=== PATIENT | female | born 1950 | race Caucasian/White ===

== ENCOUNTER → 2017-08-23 | Outpatient (CLI) | payer BC | LOC: FIMAGING 13:21 | PROVIDERS: ATTEND Internal Medicine | DX: Z12.31 Encounter for screening mammogram for malignant neoplasm of breast (principal) | CPT/HCPCS: G0202 ==

== ENCOUNTER → 2018-03-07 | Outpatient (CLI) | payer BC | LOC: FIMAGING 13:55 | PROVIDERS: ATTEND Internal Medicine | DX: R07.89 Other chest pain (principal); R05 Cough; R53.83 Other fatigue; D69.2 Other nonthrombocytopenic purpura ==

== ENCOUNTER → 2018-06-13 | Outpatient (CLI) | payer BC ==
[~2018-06-13] MED LIST: GADOBUTROL 10 ML VIAL IVP ONE
== END ==
LOC: FIMAGING 11:49
PROVIDERS: ATTEND Internal Medicine
DX: H02.401 Unspecified ptosis of right eyelid (principal); H34.8320 Tributary (branch) retinal vein occlusion, left eye, with macular edema; R51 Headache
CPT/HCPCS: A9585

== ENCOUNTER → 2018-08-23 | Outpatient (CLI) | payer BC | LOC: FIMAGING 12:50 | PROVIDERS: ATTEND Internal Medicine | DX: Z12.31 Encounter for screening mammogram for malignant neoplasm of breast (principal) ==